=== PATIENT | female | born 1950 | race African-American/Black ===

== ENCOUNTER 2021-08-30 10:15 | Emergency (ER) | payer MEDICARE ==
[~2021-08-30] VITALS: Ht 165.1 cm; Wt 98.0 kg
[~2021-08-30 10:15] MED LIST: BENICAR
[2021-08-30 10:21] VITALS: BP 185/98
[2021-08-30] MEDS ORDERED: ACETAMINOPHEN 325MG TABLET PO ONE (10:30)
== END 2021-08-30 12:00 | disposition home or self-care (01) ==
LOC: ER 10:15
DX: S90.02XA Contusion of left ankle, initial encounter (principal); I10 Essential (primary) hypertension; J45.909 Unspecified asthma, uncomplicated; Z98.890 Other specified postprocedural states; W18.31XA Fall on same level due to stepping on an object, initial encounter; Y93.89 Activity, other specified; Y92.89 Other specified places as the place of occurrence of the external cause; Y99.8 Other external cause status
CPT/HCPCS: 73610; 99283